=== PATIENT | female | born 1955 ===

== ENCOUNTER 2018-01-16 10:03 | Day surgery (SDC) | payer MEDICAID ==
--- NOTE | 2018-01-16 10:15 | PDHPUP ---
History & Physical Update H&P update statement: This history and physical update is based on an assessment of the patient which was completed after admission or registration (within 24 hours), but prior to the surgery/procedure. H&P update: H&P reviewed & patient examined, no change in patient's condition since H&P completed
[2018-01-16] MEDS ORDERED: BUPIVACAINE 0.25% 30 ML SDV ONE (10:21)
[2018-01-16] MEDS ORDERED: EPINEPHrine 1 MG/ML INJ ONE (10:22)
[2018-01-16] MEDS ORDERED: IOPAMIDOL (ISOVUE-M 300) 15 ML VIAL ONE (10:22)
[2018-01-16] MEDS ORDERED: ceFAZolin 2 GM/DEXTROSE 100 ML IV ONE (10:35)
[2018-01-16] MEDS ORDERED: LIDOCAINE 1% 2 ML INJ ID PRN (10:38)
[2018-01-16] MEDS ORDERED: LR 1,000 ML IV ONE (10:38)
[2018-01-16] MEDS ORDERED: ONDANSETRON 4 MG/2 ML VIAL IVP PRN (11:09)
[2018-01-16] MEDS ORDERED: NALOXONE HCL 0.4 MG/ML INJ IVP PRN (11:09)
[2018-01-16] MEDS ORDERED: MIDAZOLAM 2 MG/2 ML VIAL IVP ONE (11:09)
[2018-01-16] MEDS ORDERED: ACETAMINOPHEN 500 MG TAB PO PRN (11:09)
[2018-01-16] MEDS ORDERED: HYDROmorphONE/DILAUDID 1 MG/ML INJ IVP PRN (11:09)
[2018-01-16] MEDS ORDERED: DEXAMETHASONE 4 MG/ML VIAL IVP PRN (11:09)
[2018-01-16] MEDS ORDERED: ALBUTEROL 3 ML DEYVIAL IH PRN (11:09)
--- NOTE | 2018-01-16 11:10 | PDANEPAE ---
ANE History of Present Illness Inna Renea JOLENE Past Medical History - Cardiovascular History Hx Hypertension: No Hx Arrhythmias: No Hx Chest Pain: No Hx Coronary Artery / Peripheral Vascular Disease: No Hx CHF / Valvular Disease: No Hx Palpitations: No - Pulmonary History Hx COPD: No Hx Asthma/Reactive Airway Disease: No Hx Recent Upper Respiratory Infection: No Hx Oxygen in Use at Home: No Hx Sleep Apnea: No Sleep Apnea Screening Result - Last Documented: Negative - Neurologic History Hx Cerebrovascular Accident: No Hx Seizures: No Hx Dementia: No - Endocrine History Hx Diabetes: No - Renal History Hx Renal Disorders: No - Liver History Hx Hepatic Disorders: No - Neurological & Psychiatric Hx Hx Neurological and Psychiatric Disorders: No - Cancer History Hx Cancer: No - Congenital Disorder History Hx Congenital Disorders: No - GI History Hx Gastrointestinal Disorders: Yes Gastrointestinal History Comment: abd pain. reflux - Other Health History Other Health History: glasses - Chronic Pain History Chronic Pain: No - Surgical History Prior Surgeries: broken leg repair x2. hemorrhoidectomy ANE Review of Systems Review of Systems: - Exercise capacity METS (RN): 4 METS ANE Patient History - Allergies Allergies/Adverse Reactions: No Known Allergies Allergy (Verified 01/12/18 15:46) - Home Medications Home Medications: Herbals/Supplements -Info Only 01/12/18 [Last Taken 01/12/18] - Smoking Hx Smoking Status: Former smoker - Family Anes Hx Family Hx Anesthesia Complications: none ANE Labs/Vital Signs - Vital Signs Height: 157.48 cm Weight: 58.06 kg ANE Physical Exam - Airway Neck exam: FROM Mallampati Score: Class 2 Mouth exam: normal dental/mouth exam - Pulmonary Pulmonary: clear to auscultation - Cardiovascular Cardiovascular: regular rate and rhythym - ASA Status ASA Status: I ANE Anesthesia Plan Anesthesia Plan: general endotracheal anesthesia
[2018-01-16] MEDS ORDERED: PROPOFOL 200 MG/20 ML VIAL ONE (11:14)
[2018-01-16] MEDS ORDERED: fentaNYL 100 MCG/2 ML INJ ONE ×3 (11:15→12:58)
[2018-01-16] MEDS ORDERED: DEXAMETHASONE 4 MG/ML VIAL ONE (11:16)
[2018-01-16] MEDS ORDERED: ONDANSETRON 4 MG/2 ML VIAL ONE (11:16)
[2018-01-16] MEDS ORDERED: ROCURONIUM 50 MG/5 ML VIAL ONE (11:16)
[2018-01-16] MEDS ORDERED: ePHEDrine SULFATE 25 MG/5 ML SYR ONE (11:40)
[2018-01-16] MEDS ORDERED: SUGAMMADEX SODIUM 200 MG/2 ML VIAL IVP ONE (12:11)
--- NOTE | 2018-01-16 12:22 | POSTOPPROG ---
Post Op Note Date of Operation: 01/16/18 Surgeon: Maury Webster Anesthesiologist: Jimena Anesthesia: GET(General Endotracheal) Pre-op Diagnosis: Biliary Colic Post-op Diagnosis: Chronic cholecystitis Indication: pain Procedure: Laparoscopic cholecystectomy Findings: omental adhesions, critical view obtained. Inf/Abcess present in the surg proc area at time of surgery?: No EBL: Minimal Specimen(s): GB
[2018-01-16] MEDS: fentaNYL 100 MCG/2 ML INJ IVP PRN ×4 (12:25→13:16)
--- NOTE | 2018-01-16 12:28 | POSTANESTH ---
Post Anesthetic Evaluation Cardiovascular Status: Normal, Stable Respiratory Status: Normal, Stable Level of Consciousness/Mental Status: Can Participate in Eval, Alert and Oriented Pain Control: Inadeq, Add Tx Required Nausea/Vomiting Control: Adequate, Prn Tx Ordered
[2018-01-16] MEDS ORDERED: oxyCODONE IR 5 MG TAB ONE ×2 (14:21→15:14)
[2018-01-16] MEDS: oxyCODONE IR 5 MG TAB PO PRN ×2 (14:22→15:15)
--- NOTE | 2018-01-16 14:39 | GOP ---
DATE OF OPERATION: 01/16/2018 SURGEON: Maury Webster MD [employer] SPECIALIST: None. ANESTHESIA: General endotracheal. ANESTHESIOLOGIST: Brian Hess DO. PREOPERATIVE DIAGNOSIS: Biliary colic. POSTOPERATIVE DIAGNOSIS: Chronic cholecystitis. PROCEDURE PERFORMED: Laparoscopic cholecystectomy. FINDINGS: Some old adhesive disease to the gallbladder was identified. Critical view was obtained. SPECIMENS: Gallbladder. ESTIMATED BLOOD LOSS: 5 cc. DESCRIPTION OF PROCEDURE: The patient was greeted in the preoperative suite. Once again, risks, benefits, and alternatives were discussed. Consent was signed. She was then brought back to the operative suite and placed on the OR table in a supine position. After all anesthesia machines including SCDs were on and functioning, a [employer] timeout was performed. After successful induction of general anesthesia, the patient's abdomen was prepped and draped in typical sterile fashion. I then commenced the procedure by making an infraumbilical incision, through which the Veress needle was passed. I achieved pneumoperitoneum to 15 mmHg of CO2, which was well tolerated by the patient. After successful insufflation, I inserted a 12 mm Visiport at this site. Once successfully in the abdomen, I placed 3 additional 5 mm trocars, 1 in the subxiphoid and 2 in the right upper quadrant, all under direct visualization. I successfully grasped the base of the gallbladder and retracted it over the edge of the liver. After successful retraction, she did have some omental adhesions to the edge of the gallbladder, which were successfully taken down sharply. I then grasped the infundibulum via a combination of electrocautery and blunt dissection. Here, I identified 2, and only 2, structures leading towards the gallbladder. I first clipped and cut the cystic duct, 2 proximal and 1 distal, in the same fashion as the cystic artery. Both were intact and hemostatic. I then took the gallbladder off the liver bed using electrocautery. It was removed using an EndoCatch bag. I then inspected the liver bed, which was hemostatic. I irrigated the right upper quadrant with 500 cc of sterile saline, noting clear effluent in the suction canister. I then injected local anesthesia into all port sites, which were removed under direct visualization. I evacuated my pneumoperitoneum. I closed my infraumbilical stitch site with an 0 Vicryl stitch, noting excellent fascial reapproximation. Skin was then closed with Monocryl over which Dermabond was placed. The patient was then extubated in the operative suite and taken to the PACU in satisfactory condition. DRAINS: None. COUNTS: All counts were reported as correct x2. /[id number]/MODL MTDD
[2018-01-16 15:51] VITALS: BP 147/88
== END 2018-01-16 15:51 | disposition home or self-care (01) ==
LOC: FSGY 10:03
PROVIDERS: ATTEND Surgery
PROC: 0FT44ZZ Resection of Gallbladder, Percutaneous Endoscopic Approach (ICD-10-PCS; principal; 2018-01-16 11:45)
DX: K80.10 Calculus of gallbladder with chronic cholecystitis without obstruction (principal); K21.9 Gastro-esophageal reflux disease without esophagitis
CPT/HCPCS: J0171; J0690; J1100; J2250; J2405; J2704; J3010; Q9967